=== PATIENT | female | born 1995 | race Caucasian/White ===

== ENCOUNTER 2016-06-22 19:52 | Emergency (ER) | payer MEDICAID ==
[2016-06-22] MEDS ORDERED: IBUPROFEN 400 MG TABLET PO ONE (20:18)
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
== END 2016-06-22 21:12 | disposition home or self-care (01) ==
LOC: ER 19:52
DX: S00.03XA Contusion of scalp, initial encounter (principal); W22.8XXA Striking against or struck by other objects, initial encounter; Y92.009 Unspecified place in unspecified non-institutional (private) residence as the place of occurrence of the external cause
CPT/HCPCS: 70450; 99283

== ENCOUNTER 2016-12-15 22:57 | Emergency (ER) | payer MEDICAID ==
[2016-12-15] MEDS ORDERED: ORPHENADRINE CITRATE 60MG/2ML VIAL IM ONE (23:46)
[2016-12-15] MEDS ORDERED: KETOROLAC 30 MG/ML VIAL IM ONE (23:46)
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
[2016-12-16] MEDS ORDERED: HYDROCODONE/APAP 5/325MG TABLET PO ONE (01:00)
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
== END 2016-12-16 01:16 | disposition home or self-care (01) ==
LOC: ER 22:57
DX: S16.1XXA Strain of muscle, fascia and tendon at neck level, initial encounter (principal); S09.90XA Unspecified injury of head, initial encounter; W22.8XXA Striking against or struck by other objects, initial encounter
CPT/HCPCS: 99283; 96372; 99284; 72125; 70450; J1885; J2360

== ENCOUNTER 2017-01-09 17:17 | Emergency (ER) | payer MEDICAID ==
[2017-01-09] MEDS ORDERED: ONDANSETRON HCL IV 4 MG/2 ML VIAL IV ONE (17:45)
[2017-01-09] MEDS ORDERED: 0.9 % SODIUM CHLORIDE 1,000 ML BAG IV ONE (17:45)
[2017-01-09] MEDS ORDERED: MAGNESIUM HYDROXIDE/AL HYDROX 30 ML, LIDOCAINE VISC 2% 200 MG PO ONE ×2 (17:46)
--- NOTE | 2017-01-09 18:01 | Emergency Department Record ---
History of Present Illness - General Chief Complaint: Abdominal Pain Stated Complaint: ABDOMEN PAIN, BLOOD IN STOOL Time Seen by Provider: 01/09/17 17:38 Source: Patient Mode of Arrival: Ambulatory Limitations: No limitations - History of Present Illness Initial Comments: pt c/o epigastric pain that feels similar to when she had an ulcer many years ago. she has n/v/d. the pain is constant but waxes and wanes in intensity. she state it goes thru to her back and is worse if she lays on her left side. she states it feels like labor pains. MD Complaint: Abdominal pain Onset/Timin -: Hour(s) Location: Epigastric Radiation: Back Severity: Severe Quality: Dull Consistency: Constant, Intermittent Improves With: Nothing Worsens With: Nothing Associated Symptoms: Diarrhea, Melena, Nausea, Vomiting - Related Data LMP (females 10-50): Unknown Patient : No Allergies Allergy/AdvReac Type Severity Reaction Status Date / Time azithromycin [From Zithromax] Allergy RASH Verified 01/09/17 17:30 cefixime [From Suprax] Allergy RASH Verified 01/09/17 17:30 Travel Screening - Travel/Exposure Within Last 30 Days Have you traveled within the last 30 days?: No Review of Systems Reviewed: No additional complaints except as noted below Constitutional: Reports: As per HPI. Denies: Chills, Fever, Malaise, Night sweats, Weakness, Weight change Eyes: Reports: As per HPI. Denies: Eye discharge, Eye pain, Photophobia, Vision change ENT: Reports: As per HPI. Denies: Congestion, Dental pain, Ear pain, Epistaxis , Hearing loss, Throat pain Respiratory: Reports: As per HPI. Denies: Cough, Dyspnea, Hemoptysis, Stridor, Wheezes Cardiovascular: Reports: As per HPI. Denies: Arrhythmia, Chest pain, Dyspnea on exertion, Edema, Murmurs, Orthopnea, Palpitations, Paroxysmal nocturnal dyspnea, Rheumatic Fever, Syncope Endocrine: Reports: As per HPI. Denies: Fatigue, Heat or cold intolerance, Polydipsia, Polyuria Gastrointestinal: Reports: As per HPI. Denies: Abdominal pain, Constipation, Diarrhea, Hematemesis, Hematochezia, Melena, Nausea, Vomiting Genitourinary: Reports: As per HPI. Denies: Abnormal menses, Discharge, Dyspareunia, Dysuria, Frequency, Hematuria, Incontinence, Retention, Urgency Musculoskeletal: Reports: As per HPI. Denies: Arthralgia, Back pain, Gout, Joint swelling, Myalgia, Neck pain Skin: Reports: As per HPI. Denies: Bruising, Change in color, Change in hair/ nails, Lesions, Pruritus, Rash Neurological: Reports: As per HPI. Denies: Abnormal gait, Confusion, Headache, Numbness, Paresthesias, Seizure, Tingling, Tremors, Vertigo, Weakness Psychiatric: Reports: As per HPI. Denies: Anxiety, Auditory hallucinations, Depression, Homicidal thoughts, Suicidal thoughts, Visual hallucinations Hematological/Lymphatic: Reports: As per HPI. Denies: Anemia, Blood Clots, Easy bleeding, Easy bruising, Swollen glands Past Medical History - SOCIAL HISTORY Smoking Status: Current every day smoker Alcohol Use: Occasional Drug Use: None - RESPIRATORY Hx Respiratory Disorders: No - CARDIOVASCULAR Hx Cardio Disorders: No - NEURO Hx Neuro Disorders: No - GI Hx GI Disorders: No - Hx Genitourinary Disorders: No - ENDOCRINE Hx Endocrine Disorders: No - MUSCULOSKELETAL Hx Musculoskeletal Disorders: No - PSYCH Hx Psych Problems: No - HEMATOLOGY/ONCOLOGY Hx Hematology/Oncology Disorders: No Family Medical History Any Significant Family History?: No Physical Exam - General General Appearance: Alert, Oriented x3, Cooperative, Mild distress - Head Head exam: Normal inspection - Eye Eye exam: Normal appearance, PERRL, EOMI Pupils: Normal accommodation - ENT ENT exam: Normal exam, Mucous membranes moist, Normal external ear exam, Normal orophraynx Ear exam: Normal external inspection. negative: External canal tenderness Nasal Exam: Normal inspection. negative: Discharge, Sinus tenderness Mouth exam: Normal external inspection, Tongue normal Teeth exam: Normal inspection. negative: Dental caries Throat exam: Normal inspection. negative: Tonsillar erythema, Tonsillar exudate - Neck Neck exam: Normal inspection, Full ROM. negative: Tenderness - Respiratory Respiratory exam: Normal lung sounds bilaterally. negative: Respiratory distress - Cardiovascular Cardiovascular Exam: Regular rate, Normal rhythm, Normal heart sounds - GI/Abdominal GI/Abdominal exam: Soft, Normal bowel sounds, Tenderness (mid epigastric) - Rectal Rectal exam: Deferred - exam: Deferred - Extremities Extremities exam: Normal inspection, Full ROM, Normal capillary refill. negative: Tenderness - Back Back exam: Reports: Normal inspection, Full ROM. Denies: Muscle spasm, Rash noted, Tenderness - Neurological Neurological exam: Alert, CN II-XII intact, Normal gait, Oriented X3 - Psychiatric Psychiatric exam: Normal affect, Normal mood - Skin Skin exam: Dry, Intact, Normal color, Warm Course Vital Signs 01/09/17 17:24 Temperature 98.5 F Pulse Rate 91 H Respiratory 20 Rate Blood Pressure 117/73 Pulse Ox 100 - Reevaluation(s) Reevaluation #1: 01/09/17 19:05 pt states gi cocktail did not help and toradol helped a little. Reevaluation #2: 01/09/17 19:05 care being turned over to dr mcnulty. Medical Decision Making - Lab Data Result diagrams: 01/09/17 17:40 01/09/17 17:40 Disposition Clinical Impression: Abdominal pain Qualifiers: Abdominal location: epigastric Qualified Code(s): R10.13 - Epigastric pain Forms: Patient Portal Access Quality - Quality Measures Quality Measures: N/A - Blood Pressure Screening Does Patient Have Any of the Following: No Blood Pressure Classification: Normal BP Reading Systolic Measurement: 117 Diastolic Measurement: 73 Screening for High Blood Pressure: < Normal BP, F/U Not Required > [G8783]
[2017-01-09 18:07] LABS: URINE APPEARANCE SL CLOUDY; URINE BILIRUBIN SMALL (NEGATIVE); URINE BLOOD MODERATE (NEGATIVE); URINE COLOR YELLOW; URINE GLUCOSE (UA) NEGATIVE (NEGATIVE); URINE KETONE TRACE (NEGATIVE); URINE LEUKOCYTE ESTERASE NEGATIVE (NEGATIVE); URINE NITRITE NEGATIVE (NEGATIVE); URINE PROTEIN TRACE (NEGATIVE)
[2017-01-09 18:10] LABS: BASO % 0.2 % (0-6); EOS % 0.5 % (0-6); HEMATOCRIT 41.4 % (35.0-47.0); HEMOGLOBIN 14.1 gm/dl (11.6-16.0); LYMPH % 10.3 % (16-45); MEAN CORPUSCULAR HGB CONC 34.1 g/dl (32-36); MEAN PLATELET VOLUME 9.6 fl (7.4-10.4); MONO % 3.6 % (0-9); PLATELET COUNT 310 K/uL (130-400); RED BLOOD COUNT 4.55 M/uL (3.80-5.40); RED CELL DISTRIBUTION WIDTH 13.1 % (11.5-14.5); WHITE BLOOD COUNT W/O DIFF 12.9 K/uL (4.2-12.2)
[2017-01-09 18:12] LABS: HCG,QUALITATIVE URINE NEGATIVE (NEGATIVE)
[2017-01-09 18:17] LABS: URINE BACTERIA NONE SEEN; URINE EPITHELIAL CELLS 0 - 2 (FEW); URINE RBC 0 - 2 (NONE SEEN); URINE WBC NONE SEEN (0-2/hpf)
[2017-01-09 18:26] LABS: ALB/GLOB RATIO 1.5 (1.1-1.8); ALBUMIN 4.3 g/dL (4.0-5.0); ALKALINE PHOSPHATASE 65 U/L (35-104); ALT/SGPT 17 U/L (<33); AST/SGOT 9 U/L (10.0-35.0); BLOOD UREA NITROGEN 8 mg/dL (6-20); CREATININE 0.5 mg/dL (0.5-0.9); EST GLOMERULAR FILTRATION RATE > 60 mL/min; GLUCOSE,RANDOM 133 mg/dL (74-109); LIPASE 18 U/L (13-60); TOTAL PROTEIN 7.2 g/dL (6.6-8.7)
[2017-01-09] MEDS ORDERED: KETOROLAC 30 MG/ML VIAL IVP ONE (18:37)
[2017-01-09] MEDS ORDERED: HYOSCYAMINE SULFATE ODT 0.125 MG TAB.SUBL SL ONE (20:29)
--- NOTE | 2017-01-09 20:31 | Emergency Department Record ---
History of Present Illness - General Chief Complaint: Abdominal Pain Stated Complaint: ABDOMEN PAIN, BLOOD IN STOOL Time Seen by Provider: 01/09/17 17:38 Source: Patient Mode of Arrival: Ambulatory Limitations: No limitations - History of Present Illness MD Complaint: Abdominal pain Onset/Timin -: Hour(s) Location: Epigastric Radiation: Back Severity: Severe Quality: Dull Consistency: Constant, Intermittent Improves With: Nothing Worsens With: Nothing Associated Symptoms: Diarrhea, Melena, Nausea, Vomiting - Related Data LMP (females 10-50): Unknown Patient : No Previous Rx's Medication Instructions Recorded Ciprofloxacin HCl [Cipro] 500 mg PO Q12HR #19 tablet 01/09/17 Hyoscyamine Sulfate [Levsin-Sl] 0.25 mg SL Q8H PRN #15 tab.subl 01/09/17 Metronidazole [Flagyl] 500 mg PO TID #29 tablet 01/09/17 Allergies Allergy/AdvReac Type Severity Reaction Status Date / Time azithromycin [From Zithromax] Allergy RASH Verified 01/09/17 17:30 cefixime [From Suprax] Allergy RASH Verified 01/09/17 17:30 Travel Screening - Travel/Exposure Within Last 30 Days Have you traveled within the last 30 days?: No Review of Systems Constitutional: Reports: As per HPI. Denies: Chills, Fever, Malaise, Night sweats, Weakness, Weight change Eyes: Reports: As per HPI. Denies: Eye discharge, Eye pain, Photophobia, Vision change ENT: Reports: As per HPI. Denies: Congestion, Dental pain, Ear pain, Epistaxis , Hearing loss, Throat pain Respiratory: Reports: As per HPI. Denies: Cough, Dyspnea, Hemoptysis, Stridor, Wheezes Cardiovascular: Reports: As per HPI. Denies: Arrhythmia, Chest pain, Dyspnea on exertion, Edema, Murmurs, Orthopnea, Palpitations, Paroxysmal nocturnal dyspnea, Rheumatic Fever, Syncope Endocrine: Reports: As per HPI. Denies: Fatigue, Heat or cold intolerance, Polydipsia, Polyuria Gastrointestinal: Reports: As per HPI. Denies: Abdominal pain, Constipation, Diarrhea, Hematemesis, Hematochezia, Melena, Nausea, Vomiting Genitourinary: Reports: As per HPI. Denies: Abnormal menses, Discharge, Dyspareunia, Dysuria, Frequency, Hematuria, Incontinence, Retention, Urgency Musculoskeletal: Reports: As per HPI. Denies: Arthralgia, Back pain, Gout, Joint swelling, Myalgia, Neck pain Skin: Reports: As per HPI. Denies: Bruising, Change in color, Change in hair/ nails, Lesions, Pruritus, Rash Neurological: Reports: As per HPI. Denies: Abnormal gait, Confusion, Headache, Numbness, Paresthesias, Seizure, Tingling, Tremors, Vertigo, Weakness Psychiatric: Reports: As per HPI. Denies: Anxiety, Auditory hallucinations, Depression, Homicidal thoughts, Suicidal thoughts, Visual hallucinations Hematological/Lymphatic: Reports: As per HPI. Denies: Anemia, Blood Clots, Easy bleeding, Easy bruising, Swollen glands Past Medical History - SOCIAL HISTORY Smoking Status: Current every day smoker Alcohol Use: Occasional Drug Use: None - RESPIRATORY Hx Respiratory Disorders: No - CARDIOVASCULAR Hx Cardio Disorders: No - NEURO Hx Neuro Disorders: No - GI Hx GI Disorders: No - Hx Genitourinary Disorders: No - ENDOCRINE Hx Endocrine Disorders: No - MUSCULOSKELETAL Hx Musculoskeletal Disorders: No - PSYCH Hx Psych Problems: No - HEMATOLOGY/ONCOLOGY Hx Hematology/Oncology Disorders: No Family Medical History Any Significant Family History?: No Physical Exam - General Limitations: No limitations Course Vital Signs 01/09/17 01/09/17 17:24 18:48 Temperature 98.5 F Pulse Rate 91 H Pulse Rate [ 76 Pulse Ox Probe] Respiratory 20 18 Rate Blood Pressure 117/73 Blood Pressure 118/71 [Left Arm] Pulse Ox 100 97 - Reevaluation(s) Reevaluation #1: 01/09/17 20:28 Labs reviewed and are grossly unremarkable for an acute process. On examination , patient reports diffuse abdominal pain with the onset of blood in the stool after arriving to the ED this evening. Patient reports a history of "stomach ulcers" at age 13 years with similar symptoms. Patient has received GI cocktail and Toradol for her pain symptoms that have not significant improved her pain symptoms, Levsin ordered for cramping. Patient is drinking her 2nd bottle for her CT imaging study. Reevaluation #2: 01/09/17 22:19 CT Abdomen and Pelvis: Mild ileitis, small amount FF pelvis, normal appendix. Patient was re-evaluated and updated on all results, will treat for possible ileitis with Cipro and Flagyl as well as Levsin for her abdominal pain symptoms. Patient was unable to provide stool sample prior to discharge. Patient appears stable for discharge at this time. Medical Decision Making - Lab Data Result diagrams: 01/09/17 17:40 01/09/17 17:40 Lab Results 01/09/17 01/09/17 01/09/17 Range/Units 17:40 17:40 17:40 WBC 12.9 H (4.2-12.2) K/uL RBC 4.55 (3.80-5.40) M/uL Hgb 14.1 (11.6-16.0) gm/dl Hct 41.4 (35.0-47.0) % MCV 91.0 (81-97) fl MCH 31.0 (27-33) pg MCHC 34.1 (32-36) g/dl RDW 13.1 (11.5-14.5) % Plt Count 310 (130-400) K/uL MPV 9.6 (7.4-10.4) fl Neutrophils % 90.0 H (47-80) % Band Neutrophils % 0.0 (0-5) % Lymphocytes % 10.3 L (16-45) % Monocytes % 3.6 (0-9) % Eosinophils % 0.5 (0-6) % Basophils % 0.2 (0-6) % Lymphocytes 8.0 L (16-45) % Monocytes 1.0 (0-9) % Basophils 0.0 (0-6) % Eosinophil Count 1.0 (0-6) % Sodium 141 (136-145) mmol/L Potassium 3.4 (3.4-4.5) mmol/L Chloride 105 (98-107) mmol/L Carbon Dioxide 21.0 L (22-29) mmol/L Anion Gap 15.0 (7-16) BUN 8 (6-20) mg/dL Creatinine 0.5 (0.5-0.9) mg/dL Estimated GFR > 60 mL/min Random Glucose 133 H (74-109) mg/dL Calcium 8.7 (8.6-10.0) mg/dL Total Bilirubin 0.30 (0.2-1.0) mg/dL AST 9 L (10.0-35.0) U/L ALT 17 (<33) U/L Alkaline Phosphatase 65 (35-104) U/L Total Protein 7.2 (6.6-8.7) g/dL Albumin 4.3 (4.0-5.0) g/dL Globulin 2.9 (1.4-4.8) gm/dL Albumin/Globulin Ratio 1.5 (1.1-1.8) Lipase 18 (13-60) U/L Urine Color Yellow Urine Appearance Sl cloudy Urine pH 6.0 (5.0-8.0) Ur Specific Adrian 1.025 (1.002-1.030) Urine Protein Trace H (NEGATIVE) Urine Glucose (UA) Negative (NEGATIVE) Urine Ketones Trace H (NEGATIVE) Urine Blood Moderate (NEGATIVE) Urine Nitrite Negative (NEGATIVE) Urine Bilirubin Small H (NEGATIVE) Urine Urobilinogen 1.0 (0.20 - 1.00) E.U./dL Ur Leukocyte Esterase Negative (NEGATIVE) Urine RBC 0 - 2 (NONE SEEN) Urine WBC None seen (0-2/hpf) Ur Epithelial Cells 0 - 2 (FEW) Urine Bacteria None seen Urine HCG, Qual Negative (NEGATIVE) Disposition Disposition: Discharge Clinical Impression: Ileitis Abdominal pain Qualifiers: Abdominal location: epigastric Qualified Code(s): R10.13 - Epigastric pain Diarrhea Qualifiers: Diarrhea type: unspecified type Qualified Code(s): R19.7 - Diarrhea, unspecified Disposition: Home, Self-Care Condition: (2) Stable Instructions: Infectious Colitis (ED) Additional Instructions: Return to ED if your symptoms worsen or if you have any concerns. Cipro, Flagyl, and Levsin as directed. Follow-up with your family doctor in 3-5 days as directed. Prescriptions: Ciprofloxacin HCl [Cipro] 500 mg PO Q12HR #19 tablet Hyoscyamine Sulfate [Levsin-Sl] 0.25 mg SL Q8H PRN #15 tab.subl PRN Reason: Abdominal Pain Metronidazole [Flagyl] 500 mg PO TID #29 tablet Forms: Patient Portal Access Time of Disposition: 22:23 Quality - Quality Measures Quality Measures: N/A - Blood Pressure Screening Does Patient Have Any of the Following: No Blood Pressure Classification: Pre-Hypertensive BP Reading Systolic Measurement: 108 Diastolic Measurement: 81 Screening for High Blood Pressure: < Pre-Hypertensive BP, F/U Documented > [ G8950] Pre-Hypertensive Follow-up Interventions: Referral to alternative/primary care provider.
[2017-01-09] MEDS ORDERED: CIPROFLOXACIN HCL 500 MG TABLET PO ONE (22:25)
[2017-01-09] MEDS ORDERED: METRONIDAZOLE 250 MG TABLET PO ONE (22:25)
--- NOTE | 2017-01-11 12:35 | CT SCAN REPORT ---
DATE: 01/09/2017 at 9:10 p.m. EXAM: CT OF THE ABDOMEN AND PELVIS WITH CONTRAST. HISTORY: Severe stomach pain, diarrhea, blood in stool. TECHNIQUE: Axial CT scan of the abdomen and pelvis performed following both oral and intravenous contrast utilizing a dose of 100 mL of Omnipaque 300 as the intravenous contrast. COMPARISON: No prior abdomen and pelvis CT with which to compare. FINDINGS: No calcified gallstones are seen within the gallbladder. No definite hepatic or splenic mass identified. No definite adrenal, pancreatic, or renal mass identified. There does appear to be a nonobstructing calculus within the right kidney. The appendix is visualized and appears negative. No appendicitis is identified. Some of the distal small bowel loops have a mildly thick-walled appearance. This may be associated with an enteritis. There is also some mild free fluid in the pelvis. This is a nonspecific finding. The lung bases appear clear. No free intraperitoneal air is identified. 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 IMPRESSION: 1. THE APPENDIX APPEARS NEGATIVE. 2. SEVERAL MILDLY THICK-WALLED LOOPS OF SMALL BOWEL PREDOMINANTLY IN THE RIGHT LOWER QUADRANT SUGGESTING AN ILEITIS IN THIS REGION. THERE IS SOME MILD FREE FLUID IN THE PELVIS WELL. NO FREE AIR EVIDENT. JOB NUMBER: [id number] MTDD
== END 2017-01-09 22:39 | disposition home or self-care (01) ==
LOC: ER 17:17
DX: K52.9 Noninfective gastroenteritis and colitis, unspecified (principal); K92.1 Melena; R10.13 Epigastric pain; R11.2 Nausea with vomiting, unspecified
CPT/HCPCS: 99284 ×2; 96374; 96375; 83690; 80053; 81001; 81025; 85027; 74177; Q9967; J1980; J1885; J2405; J7030

== ENCOUNTER 2017-03-29 19:49 | Emergency (ER) | payer MEDICAID ==
[2017-03-29] MEDS ORDERED: DEXAMETHASONE SOD PHOSPHATE 10MG/ML VIAL PO ONE (20:22)
[2017-03-29] MEDS ORDERED: ONDANSETRON 4 MG ODT TABLET SL ONE (20:22)
[2017-03-29] MEDS ORDERED: AMOXICILLIN 500MG CAPSULE PO ONE (20:22)
--- NOTE | 2017-03-29 20:24 | Emergency Department Record ---
History of Present Illness - General Chief complaint: Nausea, Vomiting, Diarrhea Stated complaint: NAUSEA,VOMITTING,CANT EAT Time Seen by Provider: 03/29/17 20:22 Source: Patient Mode of Arrival: Ambulatory Limitations: No limitations - History of Present Illness Initial comments: 22 yo female presents to ED for evaluation of sore throat symptoms for the past 1 week resulting in nausea and vomiting symptoms. Patient reports fever and headache symptoms resulting from her sore throat, denies abdominal pain or urinary symptoms. Patient reports similar symptoms annually as well, denies health problems at her baseline. MD complaint: Nausea, Vomiting, Other (sore throat) Onset/Timin -: Days(s) Associated Abdominal Pain: No Severity scale (1-10): 10 Improves with: None Worsens with: None Associated Symptoms: Fever/chills, Nausea/vomiting - Related Data Previous Rx's Medication Instructions Recorded Amoxicillin 500 mg PO TID #29 capsule 03/29/17 Ondansetron [Zofran Odt] 4 mg PO Q6H PRN #15 tab.rapdis 03/29/17 Allergies Allergy/AdvReac Type Severity Reaction Status Date / Time azithromycin [From Zithromax] Allergy RASH Verified 01/09/17 17:30 cefixime [From Suprax] Allergy RASH Verified 01/09/17 17:30 Travel Screening - Travel/Exposure Within Last 30 Days Have you traveled within the last 30 days?: No - Travel/Exposure Within Last Year Have you traveled outside the [place] in the last year?: No - Additonal Travel Details Have you been exposed to anyone with a communicable illness?: No - Travel Symptoms Symptom Screening: None Review of Systems Constitutional: Reports: Chills, Fever, Malaise. Denies: Night sweats Eyes: Denies: Eye discharge, Eye pain ENT: Reports: Throat pain. Denies: Congestion, Ear pain, Epistaxis Respiratory: Denies: Cough, Dyspnea Cardiovascular: Denies: Chest pain, Dyspnea on exertion Endocrine: Denies: Fatigue, Heat or cold intolerance Gastrointestinal: Reports: Nausea, Vomiting. Denies: Abdominal pain Genitourinary: Denies: Incontinence, Retention Musculoskeletal: Denies: Arthralgia, Back pain, Gout, Joint swelling Skin: Denies: Bruising, Change in color Neurological: Reports: Headache. Denies: Abnormal gait, Confusion, Seizure Psychiatric: Denies: Anxiety Hematological/Lymphatic: Denies: Anemia, Blood Clots Past Medical History - SOCIAL HISTORY Smoking Status: Current every day smoker Alcohol Use: Occasional Drug Use: None - RESPIRATORY Hx Respiratory Disorders: No - CARDIOVASCULAR Hx Cardio Disorders: No - NEURO Hx Neuro Disorders: No - GI Hx GI Disorders: No - Hx Genitourinary Disorders: No - ENDOCRINE Hx Endocrine Disorders: No - MUSCULOSKELETAL Hx Musculoskeletal Disorders: No - PSYCH Hx Psych Problems: No - HEMATOLOGY/ONCOLOGY Hx Hematology/Oncology Disorders: No Family Medical History Any Significant Family History?: No Physical Exam - General General Appearance: Alert, Oriented x3, Cooperative, Mild distress Limitations: No limitations - Head Head exam: Atraumatic, Normocephalic, Normal inspection Head exam detail: negative: Abrasion, Contusion, Trevizo's sign, General tenderness, Hematoma, Laceration - Eye Eye exam: Normal appearance. negative: Conjunctival injection, Periorbital swelling, Periorbital tenderness, Scleral icterus - ENT Ear exam: negative: Auricular hematoma, Auricular trauma Nasal Exam: negative: Active bleeding, Discharge, Dried blood, Foreign body Mouth exam: negative: Drooling, Laceration, Muffled voice, Tongue elevation Throat exam: Tonsillar erythema, Other (No peritonsillar abscess is present). negative: Tonsillomegaly, R peritonsillar mass, L peritonsillar mass - Neck Neck exam: Normal inspection. negative: Meningismus, Tenderness - Respiratory Respiratory exam: Normal lung sounds bilaterally. negative: Rales, Respiratory distress, Rhonchi, Stridor - Cardiovascular Cardiovascular Exam: Normal rhythm, Normal heart sounds, Tachycardia - GI/Abdominal GI/Abdominal exam: Soft. negative: Rebound, Rigid, Tenderness - Rectal Rectal exam: Deferred - exam: Deferred - Extremities Extremities exam: Normal inspection. negative: Calf tenderness, Pedal edema, Tenderness - Back Back exam: Denies: CVA tenderness (R), CVA tenderness (L) - Neurological Neurological exam: Alert, Normal gait, Oriented X3 - Psychiatric Psychiatric exam: Normal affect, Normal mood - Skin Skin exam: Normal color. negative: Abrasion Type of lesion: negative: abrasion Course Vital Signs 03/29/17 03/29/17 19:53 19:55 Temperature 99.5 F 99.8 F H Pulse Rate [ 122 H Pulse Ox Probe] Respiratory 24 Rate Blood Pressure 118/85 [Left Arm] Pulse Ox 97 - Reevaluation(s) Reevaluation #1: 03/29/17 20:27 Patient was seen and examined, reports that her worst symptoms are the inflammation and swelling of her throat which is causing the rest of her symptoms. Patient declined blood work or further evaluation in ED, would like to receive treatment for pharyngitis and go home. Will administer Decadron for pharyngitis symptoms, treat with Amoxicillin and Zofran as needed at home. Patient appears stable for discharge at this time. Disposition Disposition: Discharge Clinical Impression: Pharyngitis Qualifiers: Pharyngitis/tonsillitis etiology: unspecified etiology Qualified Code(s): J02.9 - Acute pharyngitis, unspecified Disposition: Home, Self-Care Condition: (2) Stable Instructions: Pharyngitis (ED) Additional Instructions: Return to ED if your symptoms worsen or if you have any concerns. Zofran and Amoxicillin as directed. Follow-up with your family doctor in 3-5 days as directed. Prescriptions: Amoxicillin 500 mg PO TID #29 capsule Ondansetron [Zofran Odt] 4 mg PO Q6H PRN #15 tab.rapdis PRN Reason: Nausea/Vomiting Forms: Patient Portal Access Time of Disposition: 20:24 Quality - Quality Measures Quality Measures: N/A - Blood Pressure Screening Does Patient Have Any of the Following: No Blood Pressure Classification: Normal BP Reading Systolic Measurement: 114 Diastolic Measurement: 64 Screening for High Blood Pressure: < Normal BP, F/U Not Required > [G8783]
== END 2017-03-29 20:49 | disposition home or self-care (01) ==
LOC: ER 19:49
DX: J02.9 Acute pharyngitis, unspecified (principal); R11.2 Nausea with vomiting, unspecified; R19.7 Diarrhea, unspecified; R22.1 Localized swelling, mass and lump, neck; F17.210 Nicotine dependence, cigarettes, uncomplicated
CPT/HCPCS: 99283 ×2; 87880; J1100

== ENCOUNTER 2019-01-10 12:46 | Emergency (ER) | payer MEDICAID ==
--- NOTE | 2019-01-10 13:08 | Emergency Department Record ---
History of Present Illness - General Chief Complaint: Chest Pain Stated Complaint: CHEST PAIN,DIZZINESS Time Seen by Provider: 01/10/19 13:05 Source: Patient Mode of Arrival: Ambulatory Limitations: No limitations - History of Present Illness Initial Comments: 24 yo female presents with right upper quadrant pain that started around 9:30am. She states the pain awoke her. The pain is still in this location but radiates to the chest on the right and mid chest as well. No cough. It does hurt to breath. No control. She does smoke. No known underlying heart or lung disease. She has had some mild food intolerance recently. No back or leg pain. No calf pain or swelling. MD Complaint: Chest pain, Other (Right upper quadrant pain) Onset/Timin -: Hour(s) Onset: Awoke with symptoms Pain Location: Left chest, Right chest, Epigastric Severity scale (1-10): 10 Quality: Sharp, Tightness Consistency: Constant Improves With: Nothing Worsens With: Palpation, Other (deep breathing) Context: Other (No recent illness) Anginal Symptoms: Nausea Treatments Prior to Arrival: None - Related Data Previous Rx's Medication Instructions Recorded Omeprazole [Prilosec] 20 mg PO DAILY #30 01/10/19 Sucralfate [Carafate] 1 g PO QID #200 udc 01/10/19 Allergies Allergy/AdvReac Type Severity Reaction Status Date / Time azithromycin [From Zithromax] Allergy RASH Unverified 08/14/17 09:43 cefixime [From Suprax] Allergy RASH Unverified 08/14/17 09:43 Travel Screening - Travel/Exposure Within Last 30 Days Have you traveled within the last 30 days?: No - Travel/Exposure Within Last Year Have you traveled outside the [place] in the last year?: No - Additonal Travel Details Have you been exposed to anyone with a communicable illness?: No - Travel Symptoms Symptom Screening: None Review of Systems Constitutional: Denies: Chills, Fever, Malaise, Weakness Eyes: Denies: Eye discharge ENT: Denies: Congestion, Throat pain Respiratory: Reports: Dyspnea. Denies: Cough, Hemoptysis, Stridor, Wheezes Cardiovascular: Reports: Chest pain. Denies: Edema, Palpitations, Syncope Endocrine: Denies: Fatigue, Polydipsia, Polyuria Gastrointestinal: Reports: Abdominal pain (right upper quadrant pain), Nausea. Denies: Diarrhea Genitourinary: Denies: Dysuria, Incontinence, Urgency Musculoskeletal: Denies: Arthralgia, Neck pain Skin: Denies: Bruising, Change in color, Rash Neurological: Denies: Headache, Numbness, Weakness Psychiatric: Denies: Anxiety Past Medical History - SOCIAL HISTORY Smoking Status: Current every day smoker Alcohol Use: Occasional Drug Use: Heavy Drug Use Detail:: Marijuana - RESPIRATORY Hx Respiratory Disorders: No - CARDIOVASCULAR Hx Cardio Disorders: No - NEURO Hx Neuro Disorders: No - GI Hx GI Disorders: Yes Hx Irritable Bowel: Yes Hx Ulcer: Yes - Hx Genitourinary Disorders: Yes Hx Kidney Stones: Yes - ENDOCRINE Hx Endocrine Disorders: No - MUSCULOSKELETAL Hx Musculoskeletal Disorders: No - PSYCH Hx Psych Problems: Yes Hx Depression: Yes - HEMATOLOGY/ONCOLOGY Hx Hematology/Oncology Disorders: No Family Medical History Any Significant Family History?: No Hx Heart Disease: Grandparents Physical Exam - General General Appearance: Alert, Oriented x3, Cooperative, No acute distress Limitations: No limitations - Head Head exam: Atraumatic, Normal inspection - Eye Eye exam: Normal appearance, PERRL. negative: Conjunctival injection, Scleral icterus - ENT ENT exam: Normal exam, Mucous membranes moist Ear exam: Normal external inspection Nasal Exam: Normal inspection Mouth exam: Normal external inspection - Neck Neck exam: Normal inspection, Full ROM. negative: Tenderness - Respiratory Respiratory exam: Normal lung sounds bilaterally. negative: Chest wall tenderness, Decreased breath sounds, Respiratory distress, Rhonchi, Stridor, Wheezes - Cardiovascular Cardiovascular Exam: Regular rate, Normal rhythm, Normal heart sounds - GI/Abdominal GI/Abdominal exam: Soft, Tenderness (tender RUQ on palpation otherwise the abdomen is very soft). negative: Distended, Rebound, Rigid - Rectal Rectal exam: Deferred - exam: Deferred - Extremities Extremities exam: Normal inspection. negative: Tenderness - Back Back exam: Denies: CVA tenderness (R), CVA tenderness (L), Paraspinal tenderness, Rash noted - Neurological Neurological exam: Alert, Oriented X3 - Psychiatric Psychiatric exam: Normal affect, Normal mood - Skin Skin exam: Dry, Intact, Normal color, Warm Course Vital Signs 01/10/19 12:49 Pulse Rate 98 H Respiratory 18 Rate Blood Pressure 133/73 Pulse Ox 99 - Reevaluation(s) Reevaluation #1: 01/10/19 13:05 EKG #1: 12:49 Rate: 89 Rhythm: sinus Strawberry: normal Intervals: normal ST segments: normal Normal EKG 01/10/19 13:53 The CBC is normal on review HCG is negative 01/10/19 14:06 The CBC, CMP and HCG were reviewed. No lab abnormalities. HCG is negative 01/10/19 14:40 The pain initial improved with Toradol but is not returning. 01/10/19 15:52 The US was negative for acute process The patient is much improved but still some mild epigastric pain She did have an ulcer at age 13 diagnosed on endoscopy The plan is to DC home with recommendation to follow up with her PCP If the symptoms continue consider GI consultation. Medical Decision Making - Lab Data Result diagrams: 01/10/19 13:35 01/10/19 13:35 Disposition Disposition: Discharge Clinical Impression: Epigastric pain Disposition: Home, Self-Care Condition: (1) Good Instructions: Epigastric Pain (ED) Additional Instructions: Call your doctor for the next available follow up appointment Review this ER visit and the tests performed with your family doctor Return to the ER for a recheck if worse, any new concerns or questions No spicy foods, try to avoid carbonated beverage, try to stop smoking Take the prescriptions provided as directed Prescriptions: Sucralfate [Carafate] 1 g PO QID #200 udc Omeprazole [Prilosec] 20 mg PO DAILY #30 cap.dr Forms: Patient Portal Access Time of Disposition: 15:55 Quality - Quality Measures Quality Measures: N/A - Blood Pressure Screening Does Patient Have Any of the Following: No Blood Pressure Classification: Pre-Hypertensive BP Reading Systolic Measurement: 120 Diastolic Measurement: 74 Screening for High Blood Pressure: < Pre-Hypertensive BP, F/U Documented > [G8950] Pre-Hypertensive Follow-up Interventions: Referral to alternative/primary care provider.
[2019-01-10] MEDS ORDERED: 0.9 % SODIUM CHLORIDE 1,000 ML BAG IV ONE ×2 (13:20→13:23)
[2019-01-10] MEDS ORDERED: KETOROLAC 30 MG/ML VIAL IVP ONE (13:20)
[2019-01-10] MEDS ORDERED: ONDANSETRON HCL IV 4 MG/2 ML VIAL IVP ONE (13:22)
[2019-01-10 13:42] LABS: URINE BILIRUBIN NEGATIVE (NEGATIVE); URINE BLOOD TRACE-I (NEGATIVE); URINE COLOR YELLOW; URINE GLUCOSE (UA) NEGATIVE (NEGATIVE); URINE KETONE NEGATIVE (NEGATIVE); URINE LEUKOCYTE ESTERASE SMALL (NEGATIVE); URINE NITRITE NEGATIVE (NEGATIVE); URINE PROTEIN NEGATIVE (NEGATIVE); URINE UROBILINOGEN 0.2 E.U./dL (0.20 - 1.00)
[2019-01-10 13:44] LABS: ABSOLUTE NEUTROPHIL COUNT 5.71; BASO % 0.3 % (0-6); EOS % 2.3 % (0-6); GRAN % 64.5 % (47-80); HEMATOCRIT 39.6 % (35.0-47.0); HEMOGLOBIN 13.1 gm/dl (11.6-16.0); LYMPH % 26.7 % (16-45); MEAN CELL VOLUME 96.4 fl (81-97); MEAN CORPUSCULAR HEMOGLOBIN 31.9 pg (27-33); MEAN CORPUSCULAR HGB CONC 33.1 g/dl (32-36); MEAN PLATELET VOLUME 9.5 fl (7.4-10.4); MONO % 6.2 % (0-9); PLATELET COUNT 299 K/uL (130-400); RED BLOOD COUNT 4.11 M/uL (3.80-5.40); RED CELL DISTRIBUTION WIDTH 13.2 % (11.5-14.5); WHITE BLOOD COUNT W/O DIFF 8.9 K/uL (4.2-12.2)
[2019-01-10 13:46] LABS: HCG,QUALITATIVE URINE NEGATIVE (NEGATIVE)
[2019-01-10 13:52] LABS: BLOOD UREA NITROGEN 6 mg/dL (6-20); CREATININE 0.6 mg/dL (0.5-0.9); EST GLOMERULAR FILTRATION RATE > 60 mL/min
[2019-01-10 13:53] LABS: LIPASE 14 U/L (13-60); TOTAL PROTEIN 6.5 g/dL (6.6-8.7)
[2019-01-10 13:55] LABS: GLUCOSE,RANDOM 112 mg/dL (74-109)
[2019-01-10 13:56] LABS: URINE APPEARANCE CLOUDY
[2019-01-10 13:57] LABS: ALB/GLOB RATIO 1.7 (1.1-1.8); ALBUMIN 4.1 g/dL (4.0-5.0); ALT/SGPT 15 U/L (<33); AST/SGOT 14 U/L (10.0-35.0)
[2019-01-10 13:58] LABS: ALKALINE PHOSPHATASE 63 U/L (35-104)
[2019-01-10 14:04] LABS: URINE RBC 0 - 2 (NONE SEEN); URINE WBC 0 - 2 (0-2/hpf)
[2019-01-10 14:05] LABS: URINE BACTERIA FEW; URINE MUCUS LIGHT
[2019-01-10] MEDS ORDERED: MAGNESIUM HYDROXIDE/AL HYDROX 30 ML, LIDOCAINE VISC 2% 15ML 15 ML PO ONE ×2 (14:40)
[2019-01-10] MEDS ORDERED: MORPHINE SULFATE 5 MG/ML VIAL IVP ONE (14:40)
== END 2019-01-10 16:08 | disposition home or self-care (01) ==
LOC: ER 12:46
DX: R10.13 Epigastric pain (principal); R07.89 Other chest pain; F17.210 Nicotine dependence, cigarettes, uncomplicated
CPT/HCPCS: 76700; 80053; 81001; 81025; 83690; 85025; 93005; 93010; 96374; 96375; 99284; J1885; J2405; J7030